=== PATIENT | female | born 1950 | race African-American/Black ===

== ENCOUNTER 2017-11-08 13:30 | Outpatient (RCR) | payer OTHER | END 2017-12-04 | disposition home or self-care (01) | LOC: PTY 13:30 | DX: M75.122 Complete rotator cuff tear or rupture of left shoulder, not specified as traumatic (principal) ==

== ENCOUNTER 2017-12-06 09:30 | Outpatient (RCR) | payer OTHER | END 2018-01-04 | disposition home or self-care (01) | LOC: PTY 09:30 | DX: M75.122 Complete rotator cuff tear or rupture of left shoulder, not specified as traumatic (principal); I10 Essential (primary) hypertension ==

== ENCOUNTER 2018-01-06 09:50 | Outpatient (RCR) | payer OTHER | END 2018-02-03 | disposition home or self-care (01) | LOC: PTY 09:50 | DX: M75.122 Complete rotator cuff tear or rupture of left shoulder, not specified as traumatic (principal); I10 Essential (primary) hypertension ==

== ENCOUNTER 2018-02-11 09:20 | Outpatient (RCR) | payer OTHER | END 2018-03-06 | disposition home or self-care (01) | LOC: PTY 09:20 | DX: M75.122 Complete rotator cuff tear or rupture of left shoulder, not specified as traumatic (principal); I10 Essential (primary) hypertension ==